=== PATIENT | male | born 1985 | race Two or more races ===

== ENCOUNTER 2022-10-11 11:38 | Emergency (ER) | payer MEDICAID ==
[~2022-10-11] VITALS: Ht 180.3 cm; Wt 79.4 kg
--- NOTE | 2022-10-11 11:38 | NUR ---
BIBA FOR DRUG OVERDOSE. A/O X 3, ABLE TO MAKE NEEDS KNOWN, TOLERATING WELL ON ROOM AIR.
--- NOTE | 2022-10-11 12:31 | NUR ---
Patient left without being seen by ER Physician. Patient left before signing AMA paperwork.
[2022-10-11 12:32] VITALS: BP 127/84
== END 2022-10-11 12:33 | disposition left against medical advice (07) ==
LOC: ER 11:49
DX: F11.10 Opioid abuse, uncomplicated (principal)
CPT/HCPCS: 82962-TC